=== PATIENT | female | born 1960 | race Two or more races ===

== ENCOUNTER 2017-05-20 07:31 | Emergency (ER) | payer OTHER ==
[~2017-05-20] VITALS: Ht 170.2 cm; Wt 104.3 kg
[2017-05-20 07:40] VITALS: BP 134/74
[2017-05-20] MEDS ORDERED: DEXAMETHASONE SOD PHOSPHATE 10 MG/ML VIAL ONE (08:13)
[2017-05-20] MEDS ORDERED: DEXAMETHASONE 4 MG TABLET ONE (08:20)
[2017-05-20] MEDS ORDERED: ALBUTEROL FS 2.5 MG/0.5 ML VIAL.NEB ONE (08:30)
[2017-05-20] MEDS ORDERED: ALBUTEROL FS 2.5 MG/0.5 ML VIAL.NEB NEB ONE (08:30)
[2017-05-20] MEDS ORDERED: DEXAMETHASONE 1 MG TABLET PO ONE (08:30)
[2017-05-20] MEDS ORDERED: IPRATROPIUM NEB FS 0.5 MG/2.5 ML AMPUL.NEB ONE (08:30)
[2017-05-20] MEDS ORDERED: IPRATROPIUM NEB FS 0.5 MG/2.5 ML AMPUL.NEB NEB ONE (08:30)
[2017-05-20] MEDS ORDERED: DEXAMETHASONE SOLN 0.5 MG/5 ML UDC PO ONE (08:30)
== END 2017-05-20 08:56 | disposition home or self-care (01) ==
LOC: ER 07:35
DX: J45.901 Unspecified asthma with (acute) exacerbation (principal); J06.9 Acute upper respiratory infection, unspecified; J20.9 Acute bronchitis, unspecified; M19.90 Unspecified osteoarthritis, unspecified site
CPT/HCPCS: 82962; 94640 ×2; 99284; A4606; J8540 ×2; Z7610; J1100

== ENCOUNTER 2018-12-17 10:13 | Emergency (ER) | payer OTHER ==
[2018-12-17] MEDS ORDERED: ALBUTEROL FS 2.5 MG/3 ML VIAL.NEB ONE (11:21)
[2018-12-17] MEDS ORDERED: IPRATROPIUM NEB FS 0.5 MG/2.5 ML AMPUL.NEB ONE (11:21)
[2018-12-17] MEDS ORDERED: IPRATROPIUM NEB FS 0.5 MG/2.5 ML AMPUL.NEB NEB ONE (11:30)
[2018-12-17] MEDS ORDERED: ALBUTEROL FS 2.5 MG/3 ML VIAL.NEB CONTNEB ONE (11:30)
== END 2018-12-17 13:01 | disposition home or self-care (01) ==
DX: J45.901 Unspecified asthma with (acute) exacerbation (principal)